=== PATIENT | male | born 1950 | race Caucasian/White ===

== ENCOUNTER 2024-01-09 09:31 | Emergency (ER) | payer BC ==
[2024-01-09 10:07] VITALS: BP 139/73; PULSE 87; RESP 20; TEMP 97.6; BMI 25.8
[2024-01-09] MEDS: ACETAMINOPHEN 325 MG TABLET (FP) PO ONE (10:31)
[2024-01-09] MEDS: DIPHTH,PERTUSS(ACELL),TET 0.5 ML DISP.SYRIN IM ONE (10:31)
[2024-01-09] MEDS ORDERED: ACETAMINOPHEN 325 MG TABLET (FP) ONE (10:32)
[2024-01-09] MEDS ORDERED: DIPHTH,PERTUSS(ACELL),TET 0.5 ML DISP.SYRIN IM ONE (10:33)
== END 2024-01-09 13:45 | disposition home or self-care (01) ==
LOC: FER 09:31
PROC: 3E0234Z Introduction of Serum, Toxoid and Vaccine into Muscle, Percutaneous Approach (ICD-10-PCS; principal; 2024-01-09)
PROC: 0YQXXZZ Repair Right 5th Toe, External Approach (ICD-10-PCS; 2024-01-09)
DX: S91.114A Laceration without foreign body of right lesser toe(s) without damage to nail, initial encounter (principal); W01.0XXA Fall on same level from slipping, tripping and stumbling without subsequent striking against object, initial encounter
CPT/HCPCS: 70450-TC; 72125-TC; 73630-TC-RT-FY; 90715; 99284-25

== ENCOUNTER 2024-01-24 10:00 | Emergency (ER) | payer BC, MEDICARE ==
[2024-01-24 10:14] VITALS: BP 143/77; PULSE 84; RESP 20; TEMP 98.1; BMI 22.8
== END 2024-01-24 10:52 | disposition home or self-care (01) ==
LOC: FER 10:00
DX: Z48.02 Encounter for removal of sutures (principal)
CPT/HCPCS: 99281-25

== ENCOUNTER 2024-02-11 14:21 | Emergency (ER) | payer BC, MEDICARE ==
[2024-02-11 14:43] VITALS: BP 157/86; PULSE 77; RESP 16; TEMP 98.4; BMI 23.6
== END 2024-02-11 16:13 | disposition home or self-care (01) ==
LOC: FER 14:21
DX: S00.81XA Abrasion of other part of head, initial encounter (principal); W01.198A Fall on same level from slipping, tripping and stumbling with subsequent striking against other object, initial encounter
CPT/HCPCS: 70450-TC; 70486-TC; 99284-25